=== PATIENT | female | born 1940 | race Caucasian/White ===

== ENCOUNTER → 2024-10-14 12:30 | Outpatient (REF) | payer MEDICARE, SELFPAY | LOC: HWWDC 12:30 | PROVIDERS: ATTENDING PHYSICIAN Internal Medicine Hematology & Oncology; FAMILY PHYSICIAN Physician Assistant Medical | DX: Z12.31 Encounter for screening mammogram for malignant neoplasm of breast (principal) | CPT/HCPCS: 77063; 77067 ==

== ENCOUNTER → 2024-10-25 10:13 | Outpatient (REF) | payer MEDICARE, SELFPAY | LOC: WDC 10:13 | PROVIDERS: ATTENDING PHYSICIAN Internal Medicine Hematology & Oncology; FAMILY PHYSICIAN Physician Assistant Medical | DX: R92.8 Other abnormal and inconclusive findings on diagnostic imaging of breast (principal) | CPT/HCPCS: 76642 ==

== ENCOUNTER 2025-04-26 08:35 | Emergency (ER) | payer MEDICARE, SELFPAY ==
[2025-04-26 08:38] VITALS: BP 135/72
--- NOTE | 2025-04-26 10:23 | ED.GENMED ---
History of Present Illness
General
Chief Complaint: Urinary Symptoms
Source: patient
Exam Limitations: none
Time Seen by Provider: 04/26/25 09:42
Nursing documentation reviewed up to this point in time: agreed with
History of Present Illness
History of Present Illness:
see mdm
Past History
Past History
ED Past Medical History: None; Negative Asthma, HTN, Hypercholesterolemia or NIDDM
ED Past Surgical History: Appendectomy and Gynecological (Hysterectomy)
Social History
Tobacco: Non-smoker
Alcohol: Occasional
Personal:
Living: alone
Review of Systems
Review of Systems
Allergies reviewed?: Yes
All Other Systems: Not applicable
Phy Exam
Physical Exam
Physical Exam:
GENERAL: Alert , in no apparent distress
EYE: pupils equal and reactive
NECK: Supple
ENT: o/p clr, mmm.
CARDIAC: Regular rate and rhythm .
LUNGS: Clear breath sounds bilaterally, no acute respiratory distress, no wheezes/rales/rhonchi
ABDOMEN: Soft, without focal tenderness, no r/g, no cvat, normal bowel sounds
no bladder tenderness
no CVA tenderness
NEUROLOGICAL: Alert and oriented, no focal neuro deficits
SKIN: Warm and dry, skin intact.
bruisin g to L flank approx 3x4 cm purplish/yellow, nontender
MUSCULOSKELETAL: No edema, well perfused. neg mason's sign
PSYCH: Normal and appropriate interaction.
Course
Orders/Labs/Results
Orders:
Orders
04/26/25 10:11
Bladder Scan- Treatment ONCE
0.9% Sodium Chloride 1000 ml [Nss] 1,000 ml IV BOLUS
04/26/25 10:56
Complete Blood Count/With Diff Urgent
Comprehensive Metabolic Panel Urgent
04/26/25 12:18
Urinalysis Reflex To Culture Urgent
Date Specimen was Collected: 04/26/25
Time Specimen was Collected: 12:15
Urine Microscopic Reflex Cult Urgent
Urine Culture Urgent
MILAGRO Source: U
Specimen Description:
Date Specimen was Collected: 04/26/25
Time Specimen was Collected: 12:15
04/26/25 12:49
Cefdinir [Omnicef] 300 mg PO NOW STA
Abnormal Lab Results
04/26/25 04/26/25
10:56 12:18
MPV 11.1 H fL
(7.4-10.4)
Absolute Monos (auto) 1.5 H 10^3/uL
(0.1-0.6)
Lymphocytes % 15.4 L %
(20.5-51.1)
Monocytes % 18.9 H %
(1.7-9.3)
BUN 18 H mg/dl
(7-17)
Glucose 68 L mg/dl
(70-99)
Ur Occult Blood Reflex 4+ A
(Negative)
Leukocyte Esterase Rfl 3+ A
(Negative)
Urine WBC (Reflex) 16-20 A /HPF
(0-5)
Urine Bacteria (Reflex) Moderate A
(Negative)
04/26/25 10:56
04/26/25 10:56
Vital Signs
Initial and Last Documented VS:
Initial Vital Signs
Temp Pulse Resp BP Pulse Ox
36.9 C 75 16 135/72 99
04/26/25 08:38 04/26/25 08:38 04/26/25 08:38 04/26/25 08:38 04/26/25 08:38
Last Documented Vital Signs
Temp Pulse Resp BP Pulse Ox
36.6 C 60 18 155/87 97
04/26/25 12:47 04/26/25 12:47 04/26/25 12:47 04/26/25 12:47 04/26/25 12:47
MDM/Problems Addressed
Differential Diagnosis Includes:
see MDM
MDM/Problems Addressed:
Note:
CHIEF COMPLAINT(S)
Dysuria and urinary retention.
HISTORY OF PRESENT ILLNESS
The patient is an 85-year-old female with a history of recurrent urinary tract infections, presenting with dysuria and difficulty urinating. The symptoms began yesterday, with the patient experiencing burning every time she urinates and a persistent
urge to urinate. This morning, she attempted to provide a urine sample but was unable, as nothing was produced. The patient was previously on a prophylactic low-dose antibiotic, trimethoprim 100 mg which is prescribed by dr. barry, night clerk/urologist
,for the past year.
pt had L flank pain yesterday but noticed a bruise from a fall 2 days before and thinks that i why she had flank pain.
. no fever/chills/nausea/feeling of suprapubic fullness
no h/o urinary acevedo.
She has a history of spinal cord tumor surgery, with residual weakness and neuropathy, but has not undergone bladder suspension surgery or cystoscopy.
ADDITIONAL HISTORY OBTAINED FROM SOURCES OTHER THAN THE PATIENT
According to the patient, a family member questioned her gardening activities due to her age.
CHRONIC MEDICAL CONDITIONS SIGNIFICANTLY AFFECTING CARE
Chronic conditions affecting care: history of spinal cord tumor and residual neuropathy.
SOCIAL DETERMINANTS AFFECTING HEALTH
The patient reported working outside in her garden, implying potential environmental exposure to heat and a risk for dehydration.
PHYSICAL EXAM
- Cardiovascular: No external evidence of bruising beyond reported purple-yellow discoloration on the side.
- Renal/: Inability to urinate after feeling a strong urge; bladder ultrasound and hydration plan discussed.
PLAN
Blood work is ordered to assess kidney function due to the patients inability to urinate. A bladder scan is planned to evaluate bladder size and assess for urinary retention. Depending on the volume, catheterization may be required, or the patient
may be rehydrated to produce a urine sample. Coordination with the pharmacy to verify current antibiotic prophylaxis and avoid duplication of therapy is necessary.
DIFFERENTIAL DIAGNOSIS
The Differential Diagnosis includes, in no particular order and is not limited to:
1. Urinary tract infection (UTI)
2. Urinary retention
3. Bladder outlet obstruction
4. Dehydration
5. Neurogenic bladder due to spinal cord tumor history
6. Medication-induced urinary retention
7. Transient post-void residual
8. Urethral stricture
9. Acute kidney injury
10. Cystitis
Note:
CARE-UPDATE
04/26/25 - 12:48
Patient remains clinically dehydrated despite no urinary retention indicated by bladder scan showing 70 mL residual volume. Urinalysis suggests a bladder infection with presence of bacteria, white cells, and leukocytes. No evidence of kidney
involvement as there are no symptoms like fever, vomiting, or back pain. White blood cell count and kidney markers are normal.
Plan to initiate antibiotic therapy with cephalexin unless culture indicates resistance. Medication dosage is twice daily, necessitating prompt initiation today. Advised patient to monitor for signs of worsening condition, including fever, vomiting,
or back pain, and to return if these symptoms occur.
Patient has reported a bruise from hitting her side, which is not causing current pain and shows no sign of kidney stone involvement. Confirmed not on blood thinners. Emphasized low threshold for returning if fever is 100.4�F or higher while on
antibiotics.
Disposition:
SUMMARY OF ENCOUNTER
An 85-year-old female with a history of E. coli bacteremia and recurrent UTIs was seen for dysuria and urinary frequency that began yesterday. She reported being out in the heat with inadequate fluid intake. Examination revealed dehydration with dry
mucus membranes but no significant abdominal, flank, or CVA tenderness. A history of a bruised left flank from an injury three days prior was noted,, but there was no current pain or history of kidney stones. A bladder scan showed no urinary
retention, and urinalysis was positive for infection indicators. The patients previous E. coli culture was susceptible to cephalosporins.
DISPOSITION
The patient was discharged with a prescription for oral antibiotics following improvement and stable laboratory results.
EMERGENCY TREATMENTS ADMINISTERED
Initiated cephalosporin (cefdinir, BID for seven days).
PLAN
Start treatment with oral cephalosporin (cefdinir) twice daily for seven days, given the patients history of E. coli sensitivity to this class of antibiotics. Discharge patient with instructions for compliance and monitoring.
INDEPENDENT REVIEW OF LABS AND INTERPRETATION OF TESTS
My independent review of the urinalysis is positive for infection indicators. My independent review of the CBC and creatinine is normal, consistent with the absence of systemic infection or kidney impairment.
MEDICATION RECONCILIATION
Prescription for cefdinir, 300 mg orally twice daily for seven days.
MEDICAL DECISION MAKING
1. Number & Complexity of Problems: Chronic conditions affecting care: history of spinal cord tumor and residual neuropathy. Differential diagnoses considered include UTI and dehydration.
2. Data Reviewed: Category 1 � Labs reviewed include urinalysis, CBC, and creatinine.
3. Risk: Consideration of admission/observation was made due to the complexity of urinary issues and dehydration. Outpatient management is appropriate based on stable vitals, lack of systemic symptoms, and reliable follow-up.
PATHOLOGIES TO CONSIDER
While not presenting with classical high-risk features, the possibility of worsening UTI was considered, along with maintaining vigilance for potential signs of acute kidney injury or systemic infection.
*Pulse Oximetry
SaO2: 99
Oxygen Mode of Delivery: Room air
Patient hypoxic: no (97)
*Critical Care Note
Total Time (30-74mins, 75-104mins- exclusive of procedures): Not Applicable
ED Attending Note
-
Portions of this chart may have been created with voice recognition software.� Occasional wrong word or��sound alike� substitutions may have occurred due to the inherent limitations of voice recognition software.
Discharge Plan
Departure
Patient Disposition: Home (Routine Discharge)
Date of Disposition: 04/26/25
Time of Disposition: 12:52
Patient with high blood pressure during this ER visit?: No
Condition: Fair
Covid-19: Not Applicable
Discharge Problem:
UTI (urinary tract infection)
Instructions: Urinary Tract Infection, Adult (DC)
Prescriptions:
New
cefdinir 300 mg capsule
300 mg PO BID Qty: 14 0RF
No Action
alendronate 70 MG tablet
70 mg PO WEEKLY
morphine [MS Contin] 15 MG tablet extended release
15 mg PO BID
Patient Comments:
03/06/2023: last filled 02/06/23, 60 tabs for 30 days from [facility]
cholecalciferol (vitamin D3) [Vitamin D3] 1,000 UNIT capsule
1,000 unit PO DAILY
duloxetine 30 MG capsule,delayed release(DR/EC)
30 mg PO DAILY
aspirin 81 MG tablet,chewable
81 mg PO DAILY 0RF
multivitamin Tablet
1 tab PO DAILY
ascorbic acid (vitamin C) [Vitamin C] 1,000 mg Tablet
1,000 mg PO DAILY
carvedilol 6.25 mg tablet
6.25 mg PO BID
atorvastatin 20 mg tablet
20 mg PO DAILY
trimethoprim 100 mg tablet
100 mg PO DAILY
tramadol 50 mg tablet
50 mg PO BID PRN (Reason: moderate pain)
Patient Comments:
03/06/2023: last filled 02/06/23, 60 tabs for 30 days from [facility]
diphenhydramine HCl [Benadryl] 25 mg Capsule
25 mg PO DAILY PRN (Reason: allergy relief)
pregabalin 100 mg capsule
100 mg PO TID
Patient Comments:
03/06/2023: last filled 02/06/23, 90 tabs for 30 days from [facility]
Probiotic 5 billion cell Capsule, Sprinkle
1 cap PO DAILY
amlodipine 2.5 mg Tablet
2.5 mg PO BID 30 Days Qty: 60 0RF
lubiprostone 24 mcg Capsule
24 mcg PO BID
Referrals:
Dewey Olmedo PA-C [Family Provider, Family Practice] - Follow up in 2-3 days
Activity Restrictions/Additional Instructions:
Take the cefdinir twice a day for 7 days. Drink lots of fluids. Avoid the heat. Have a low threshold to return like for fever, confusion, vomiting, back pain etc. We will call you in 48 hours if we have to switch her antibiotic
Stop the trimethoprim while you are on the cefdinir
Interventions
Interventions:
*Risk Screen - Suicide Last Done: 04/26/25 08:38
*General Assessment Last Done: 04/26/25 10:44
*Neglect/Abuse Screening Last Done: 04/26/25 10:44
*ED- Fall Risk Assessment Last Done: 04/26/25 10:44
*ED COVID-19 Vaccine History Last Done: 04/26/25 10:44
*Nursing Disposition Last Done: 04/26/25 12:47
ED-Female Genitourinary Assessment Last Done: 04/26/25 10:44
Discharge Date and Time
Discharge Date/Time: 04/26/25 13:05
Print Language: TANZANIAN
[2025-04-26 10:43] VITALS: BMI 26.4
[2025-04-26 10:47] VITALS: BP 135/72
[2025-04-26] MEDS: NSS 1000 IV (11:00)
[2025-04-26 11:16] LABS: % Basophils 0.6 % (0-2); % Eosinophils 1.6 % (0-6); % Immature Granulocytes 0.3 % (0-0.5); % Lymphocytes 15.4 % (20.5-51.1); % Monocytes 18.9 % (1.7-9.3); % Neutrophils 63.2 % (42.2-75.2); Absolute Basophils 0.1 10^3/uL (0-0.2); Absolute Eosinophils 0.1 10^3/uL (0-0.7); Absolute Lymphocytes 1.2 10^3/uL (1.2-3.4); Absolute Monocytes 1.5 10^3/uL (0.1-0.6); Hematocrit 37.5 % (37.0-47.0); Hemoglobin 12.7 g/dL (12.0-16.0); Mean Corp Hgb Conc. 33.9 g/dL (33.0-37.0); Mean Corpuscular Hgb 29.3 pg (27.0-31.0); Mean Corpuscular Volume 86.6 fL (81.0-99.0); Mean Platelet Volume 11.1 fL (7.4-10.4); Nucleated Red Blood Cells % 0 %; Platelet Count 159 10^3/uL (130-400); Red Blood Cell Count 4.33 10^6/uL (4.20-5.40); Red Cell Dist. Width 13.5 % (11.5-14.5); White Blood Cell Count 7.9 10^3/uL (4.8-10.8)
[2025-04-26 11:26] LABS: ALT (SGPT) 20 U/L (0-35); AST (SGOT) 27 U/L (14-36); Albumin 3.8 g/dl (3.5-5.0); Alkaline Phosphatase 56 U/L (38-126); Blood Urea Nitrogen 18 mg/dl (7-17); Calcium 8.9 mg/dl (8.4-10.2); Carbon Dioxide 30 mmol/L (22-30); Chloride 107 mmol/L (98-107); Estimated Creatinine Clearance 35 ml/min; Glucose 68 mg/dl (70-99); Potassium 3.8 mmol/L (3.5-5.1); Total Bilirubin 0.6 mg/dl (0.2-1.3); Total Protein 6.3 g/dl (6.3-8.2); eGFR 56.25
[2025-04-26 11:33] LABS: Sodium 140 mmol/L (135-145)
[2025-04-26 12:27] LABS: Urine Albumin Negative (Neg - Trace); Urine Bilirubin Negative (Negative); Urine Character Clear (Clear); Urine Color Yellow; Urine Glucose Negative (Negative); Urine Ketone Negative (Negative); Urine Leukocyte 3+ (Negative); Urine Nitrite Negative (Negative); Urine Occult Blood 4+ (Negative); Urine Specific Gravity 1.005 (<1.030); Urine Urobilinogen Negative (Neg - 1+)
[2025-04-26 12:40] VITALS: BP 155/87
[2025-04-26 12:41] LABS: Urine Bacteria Moderate (Negative); Urine Red Blood Cell 0-2 /HPF (0-2); Urine White Cell 16-20 /HPF (0-5)
[2025-04-26 12:47] VITALS: BP 155/87
[2025-04-26] MEDS: OMNICEF 300 MG PO (12:58)
== END 2025-04-26 13:05 | disposition home or self-care (01) ==
LOC: EMR 08:35
PROVIDERS: Physician Assistant; EMERGENCY PHYSICIAN Emergency Medicine; FAMILY PHYSICIAN Physician Assistant Medical; OTHER PHYSICIAN Obstetrics & Gynecology
DX: N39.0 Urinary tract infection, site not specified (principal); G62.9 Polyneuropathy, unspecified; R53.1 Weakness; E86.0 Dehydration; M19.90 Unspecified osteoarthritis, unspecified site; Z87.440 Personal history of urinary (tract) infections; Z79.82 Long term (current) use of aspirin
CPT/HCPCS: 99284; 96360; 51798 ×2; 80053; 81003; 81015; 85025; 87086

== ENCOUNTER → 2025-04-30 13:49 | Outpatient (REF) | payer MEDICARE, SELFPAY | LOC: PAVMRI 13:49 | PROVIDERS: ATTENDING PHYSICIAN Psychiatry & Neurology Neurology; FAMILY PHYSICIAN Physician Assistant Medical | DX: M54.50 Low back pain, unspecified (principal) | CPT/HCPCS: 72148 ==

== ENCOUNTER → 2025-09-02 10:56 | Outpatient (REF) | payer MEDICARE, SELFPAY | LOC: RAD 10:56 | PROVIDERS: ATTENDING PHYSICIAN Internal Medicine Hematology & Oncology; FAMILY PHYSICIAN Physician Assistant Medical | DX: M85.80 Other specified disorders of bone density and structure, unspecified site (principal); Z79.811 Long term (current) use of aromatase inhibitors | CPT/HCPCS: 77080 ==

== ENCOUNTER → 2025-10-17 11:16 | Outpatient (REF) | payer MEDICARE, SELFPAY | LOC: WDC 11:16 | PROVIDERS: ATTENDING PHYSICIAN Internal Medicine Hematology & Oncology; FAMILY PHYSICIAN Physician Assistant Medical | DX: Z12.31 Encounter for screening mammogram for malignant neoplasm of breast (principal); C50.311 Malignant neoplasm of lower-inner quadrant of right female breast | CPT/HCPCS: 77063; 77067 ==